=== PATIENT | female | born 1995 ===

== ENCOUNTER 2022-02-26 14:07 | Outpatient (CLI) | payer SELFPAY ==
[2022-02-26 15:17] LABS: Hematocrit 37.6 % (37.0-47.0); Hemoglobin 11.8 g/dL (12.0-15.0); Mean Corpuscular HGB Conc 31.4 g/dl (32-36); Mean Corpuscular Hemoglobin 26.5 pg (26-34); Mean Corpuscular Volume 84.3 fl (80-100); Mean Platelet Volume 9.6 fl (7.4-10.4); Platelet Count Result 416 k/mm3 (150-375); Red Blood Count 4.46 M/mm3 (4.2-5.4); Red Cell Distribution Width 11.8 % (11.5-14.5); White Blood Count 9.8 K/mm3 (4.5-10.0)
[2022-02-26 15:31] LABS: CRP 2.7 mg/dL (<1.0)
[2022-02-26 15:32] LABS: Rheumatoid Factor < 8.6 IU/ML (<12)
[2022-02-26 16:02] LABS: Erythrocyte Sedimentation Rate 26 mm/hr (0-20)
[2022-02-28 21:33] LABS: Anti Cyclic Citrullinated Pept <16 Units (<20)
[2022-03-05 11:03] LABS: Anti Nuclear Antibody Pattern Nuclear, Speckled
== END 2022-02-26 14:08 | disposition home or self-care (01) ==
LOC: ANHLAB 14:17
PROVIDERS: Visit Provider Orthopaedic Surgery
DX: M06.9 Rheumatoid arthritis, unspecified (principal)
CPT/HCPCS: 36415; 85027; 85652; 86038; 86039; 86140; 86200; 86430